=== PATIENT | male | born 1990 | race Two or more races ===

== ENCOUNTER → 2016-09-12 07:00 | Day surgery (SDC) | payer OTHER ==
--- NOTE | 2016-08-22 17:03 | HP ---
CC: Dr. Gaurav Saldaña, Department of Urology, [facility], [facility] DATE OF ADMISSION: 09/12/2016. ADMITTING DIAGNOSIS: Bilateral hydronephrosis. PLANNED PROCEDURE: Cystoscopy and left stent removal. SURGEON: Dr. Israel. 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 He underwent right robotic pyeloplasty in March 2016 and subsequently underwent left pyeloplasty o n 07/10/2016. He is now being brought in for left stent removal with intravenous sedation. PAST MEDICAL HISTORY: Unremarkable other than the bilateral hydronephrosis. MEDICATIONS ON ADMISSION: None. ALLERGIES: AMOXICILLIN, ERYTHROMYCIN. PHYSICAL EXAMINATION GENERAL: Pleasant, healthy-appearing young gentleman. VITAL SIGNS: Blood pressure 120/80, pulse 63 per minute, oxygen saturation 98 percent on room air, temperature 98.2. CARDIOVASCULAR: Regular rate and rhythm. S1, S2. LUNGS: Clear bilaterally. ABDOMEN: Soft with mild left flank tenderness. IMPRESSION: Uhlsdy-fisx-hcau-old gentleman status post robotic pyeloplasty on 07/10/2016 in [facility] who is now being brought in for cystoscopy and left stent removal with intravenous sedation. [id number]/[facility] #: [id number]
[~2016-09-12 07:00] MED LIST: Acetaminophen TAB* 325 MG PO PRN; Buffered Lidocaine 1% SYR 3ML* 3 ML/SYR SYRINGE INTRADERM ONE; DiMENhydriNATE IV* 50 MG/ML VIAL IV PUSH PRN; Famotidine IV* 10 MG/ML 2 ML (20 mg) IV ONE; Famotidine IV* 10 MG/ML 2 ML (20 mg) ONE; Furosemide IV* 10 MG/ML 2 ML VIAL (20 MG) ONE; Iohexol 180 (CONTRAST) 10 ML SDV IV ONE; Ketorolac INJ* 30 MG/ML 1 ML VIAL ONE; Levofloxacin 500 MG IVPREMIX(* 500 MG/100 ML BAG IVPB ONE; Lidocaine 2% JELLY* 20 ML (for OR use) ONE; Lidocaine 2% PF * 5 ML VIAL ONE; Midazolam* 1 MG/ML 5 ML VIAL (5 MG) ONE; Ondansetron INJ* 2 MG/ML VIAL ONE; Propofol* 10 MG/ML 20 ML BTL IV PUSH ONE; fentaNYL* 50 MCG/ML 2 ML VIAL (100 MCG VIAL) ONE; oxyCODONE TAB* 5 MG TAB PO PRN
[2016-09-12 09:18] VITALS: BP 125/75
--- NOTE | 2016-09-12 09:50 | OP ---
DATE OF OPERATION: 09/12/16 - SDS DATE OF : [birth year] - AGE: 26 years, male. SURGEON: Aquilnio Israel MD ANESTHESIOLOGIST: Dr. Akbar ANESTHESIA: Local plus intravenous sedation. PRE-OP DIAGNOSIS: Left hydronephrosis. POST-OP DIAGNOSIS: Left hydronephrosis. OPERATIVE PROCEDURE: Cystoscopy, left stent removal. 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 He had under-gone bilateral stent insertion, followed by right, and then subsequently left robotic pyeloplasty. He is now being brought in for left stent removal. POSTOPERATIVE CONDITION: Stable. COMPLICATIONS: None. DESCRIPTION OF PROCEDURE: After administration of 2% Xylocaine gel and intravenous sedation, the patient was placed in dorsal lithotomy position. Sequential compression devices were in place and functioning. Cystoscopy revealed a normal- appearing urethra. The stent was seen exiting from the left ureter and was mildly encrusted as is expected for a stent placement in for more than four weeks. This stent was grasped and removed intact without difficulty. The bladder was emptied. The patient tolerated the procedure satisfactorily, and was transferred back to recovery area in stable condition. CC: Gaurav Saldaña MD, Department of Urology, [facility], [place], [place].* [id number] #: [id number] MTDD
== END | disposition home or self-care (01) ==
LOC: OR 07:00
PROVIDERS: ATTEND Urology
DX: Q62.0 Congenital hydronephrosis (principal)
CPT/HCPCS: J1885; J1940; J1956; J2250; J2405; J2704; J3010